=== PATIENT | female | born 1990 | race African-American/Black ===

== ENCOUNTER 2021-12-25 07:16 | Emergency (ER) | payer OTHER ==
[~2021-12-25] VITALS: Ht 175.3 cm; Wt 90.7 kg
[2021-12-25] MEDS ORDERED: NS 1,000 ML IV ONE (08:10)
[2021-12-25] MEDS ORDERED: KETOROLAC 30 MG/ML 1ML VIAL IV ONE (08:10)
[2021-12-25 08:58] LABS: BASO % 0.1 % (0.0-1.0); EOS # 0.1 10^3/uL (0.0-0.5); HEMATOCRIT 40.9 % (36.0-47.0); LYMPH # 1.6 10^3/uL (1.5-5.0); LYMPH % 20.7 % (24.0-44.0); MEAN CORPUSCULAR HEMOGLOBIN 27.3 pg (27.0-33.0); MEAN CORPUSCULAR HGB CONC 31.8 g/dl (32.0-36.5); MEAN CORPUSCULAR VOLUME 85.7 fl (80.0-96.0); MONO # 0.8 10^3/uL (0.0-0.8); MONO % 9.6 % (2.0-8.0); NEUTROPHILS # 5.3 10^3/uL (1.5-8.5); PLATELET COUNT, AUTOMATED 235 10^3/uL (150-450); RED BLOOD COUNT 4.77 10^6/uL (4.00-5.40); WHITE BLOOD COUNT 7.8 10^3/uL (4.0-10.0)
[2021-12-25 09:15] LABS: ERYTHROCYTE SEDIMENTATION RATE 24 mm/hr (0-20)
[2021-12-25 09:31] LABS: BLOOD UREA NITROGEN 11 MG/DL (7-18); C REACTIVE PROTEIN QUANTITATIV 0.97 MG/DL (0.00-0.30); CALCIUM LEVEL 8.7 MG/DL (8.5-10.1); CARBON DIOXIDE LEVEL 27 MEQ/L (21-32); CHLORIDE LEVEL 107 MEQ/L (98-107); CREATININE FOR GFR 0.87 MG/DL (0.55-1.30); GLOMERULAR FILTRATION RATE > 60.0 (>60); GLUCOSE, FASTING 87 MG/DL (70-100); POTASSIUM SERUM 4.1 MEQ/L (3.5-5.1); SODIUM LEVEL 139 MEQ/L (136-145)
[2021-12-25] MEDS ORDERED: dexameTHASONE 20MG/5ML VIAL (J1100 PER 1MG) IV ONE (09:55)
[2021-12-25 12:34] LABS: MONO REFLEX EBV COMP NEGATIVE (NEGATIVE)
[2021-12-25] MEDS ORDERED: MEDR4PAK PO (12:34)
[2021-12-25 12:46] VITALS: BP 130/82
[2021-12-26 15:10] LABS: EBV AB TO NUCLEAR ANTIGEN >600.0 U/mL (0.0-17.9); EBV VIRAL CAPSID AG IgG >600.0 U/mL (0.0-17.9); EBV VIRAL CAPSID AG IgM <36.0 U/mL (0.0-35.9)
== END 2021-12-25 12:55 | disposition home or self-care (01) ==
LOC: M ED 07:16
DX: J03.90 Acute tonsillitis, unspecified (principal); R51.9 Headache, unspecified; R50.9 Fever, unspecified; R06.02 Shortness of breath
CPT/HCPCS: 80048; 85025; 85652; 86140; 86308; 86664; 86665; 87798; 87880; 96361; 96374; 96375; 99284; J1100; J1885

== ENCOUNTER 2023-08-13 08:40 | Emergency (ER) | payer OTHER ==
[~2023-08-13] VITALS: Ht 175.3 cm; Wt 106.5 kg
[~2023-08-13 08:40] MED LIST: MEDR4PAK PO
[2023-08-13] MEDS ORDERED: PYRI25TA2 (08:47)
[2023-08-13] MEDS ORDERED: MAGN400T33 (08:47)
[2023-08-13] MEDS ORDERED: ONDA-83 (08:47)
[2023-08-13] MEDS ORDERED: B-2100TA (08:47)
[2023-08-13] MEDS ORDERED: diphenhydrAMINE 50MG/ML VIAL IV STA (09:04)
[2023-08-13] MEDS ORDERED: NS 1,000 ML IV ONE (09:05)
[2023-08-13] MEDS ORDERED: METOCLOPRAMIDE INJ 10MG/2ML VIAL IV ONE (09:05)
[2023-08-13] MEDS ORDERED: ACETAMINOPHEN 500 MG TAB PO ONE (09:05)
[2023-08-13 11:42] VITALS: BP 93/56; TEMP 98.6; O2SAT 100
== END 2023-08-13 11:40 | disposition home or self-care (01) ==
LOC: M ED 08:40
DX: R51.9 Headache, unspecified (principal); Z3A.16 16 weeks gestation of pregnancy; Z79.899 Other long term (current) drug therapy
CPT/HCPCS: 96361; 96374; 99284; J1200; J2765

== ENCOUNTER 2023-11-18 16:01 | Outpatient (CLI) | payer OTHER ==
[~2023-11-18] VITALS: Ht 175.3 cm; Wt 117.4 kg
[~2023-11-18 16:01] MED LIST changes: +B-2100TA; +MAGN400T33; +ONDA-83; +PYRI25TA2
[2023-11-18 16:20] VITALS: BP 133/88
[2023-11-18] MEDS ORDERED: PRENTAB9 PO (16:30)
[2023-11-18 17:21] VITALS: BP 132/81
== END 2023-11-18 17:58 | disposition home or self-care (01) ==
LOC: M LDO 16:01
PROVIDERS: ATTEND Advanced Practice Midwife
DX: O26.893 Other specified pregnancy related conditions, third trimester (principal); R03.0 Elevated blood-pressure reading, without diagnosis of hypertension; M25.551 Pain in right hip; M25.552 Pain in left hip; Z3A.30 30 weeks gestation of pregnancy
CPT/HCPCS: 59025; G0463